=== PATIENT | male | born 1965 | race Caucasian/White ===

== ENCOUNTER 2025-07-06 12:53 | Outpatient (CLI) | payer BC, SELFPAY ==
--- NOTE | 2025-07-06 13:00 | XR_ITS ---
FINAL REPORT CLINICAL HISTORY: SOB..congestion FINDINGS: 2 views of the chest were obtained . The heart is normal in size. The mediastinum is within normal limits. There is scarring or atelectasis in the right middle lung. The lungs are otherwise clear. There is no pneumothorax. Osseous structures are unremarkable. IMPRESSION: No acute cardiopulmonary process. Reviewed, Interpreted and Dictated by Archie Beckford MD Transcribed by Kendy Chavez Authenticated and [facility]
== END 2025-07-06 23:59 | disposition home or self-care (01) ==
LOC: RAD 12:55
PROVIDERS: PCP Family Medicine; Visit Provider Internal Medicine Pulmonary Disease
DX: R06.02 Shortness of breath (principal)
CPT/HCPCS: 71046

== ENCOUNTER 2025-09-03 12:46 | Outpatient (CLI) | payer BC, SELFPAY ==
--- NOTE | 2025-09-03 13:00 | CA_ITS ---
APPROVED REPORT EXAM: Limited 2D, Doppler, and color-flow Echocardiogram with contrast Press Tool Maker: Viviana Albrecht RT(R) Ht: 5 ft 10 in Wt: 285lbs BSA: 2.43 BP: 124/76 mmHg Indications: Shortness of breath, hypertension Echo Enhancing Agent Indication: Endocardial border delineation Agent(s) / Amount(s) Used: Definity 2 cc 2D Dimensions LA Volume 25.10 mL LA Volume Index 10.33 mL/m2 (M/F) 16-34 EF AP4 59.70 % GL Strain -20.1 % M-Mode Dimensions RVDd 1.69 cm (0.9-2.6) LA Diam 3.53 cm (1.9-4.0) LVDd 4.99 cm (3.5-5.7) LVDs 3.30 cm (3.5-5.7) IVSd 0.80 cm (0.6-1.1) PWd 1.07 cm (0.6-1.1) EF (Teich) 62.50% FS 33.90% EDV (Teich) 117.70 mL ESV (Teich) 44.10 mL LV Diastology E Decel Time 417 (160-240 msec) E/A Ratio 1.11 Mitral Valve MV A Velocity 71.0 (40-130 cm/s) E/A Ratio 1.11 Left Ventricle The left ventricle is normal size. Left ventricular systolic function is normal. The left ventricular ejection fraction is within the normal range. There is normal left ventricular wall thickness. There is normal LV segmental wall motion. The left ventricular diastolic function is normal. No left ventricle thrombus noted on this study. LVEF is 55% Right Ventricle The right ventricle is normal size. The right ventricular systolic function is normal. Atria The left atrium size is normal. The right atrium size is normal. Color Doppler is indeterminate for evaluation of interatrial shunt. Aortic Valve The aortic valve opens well. There is no hemodynamically significant aortic valvular stenosis. No aortic regurgitation is present. Mitral Valve The mitral valve is normal in structure. No evidence of mitral valve stenosis. Trace mitral regurgitation is present. Tricuspid Valve The tricuspid valve leaflets are thin and pliable. Trace tricuspid regurgitation. There is insufficient TR jet to estimate RVSP. Pulmonic Valve The pulmonary valve is grossly normal in structure. Trace pulmonic valve regurgitation is present. Great Vessels The aortic root is normal in size. IVC is normal in size and collapses >50% with inspiration. Pericardium There is no pericardial effusion. Other Information Study Quality: Fair Conclusion Normal biventricular systolic function. No significant valvular stenosis or regurgitation. Electronically signed by : Yaz Hurley MD 09/05/2025 01:51:34
[2025-09-03] MEDS: DEFINITY US ECHO CONTRAST 2ML INJ 2 MG IV (13:56)
== END 2025-09-03 23:59 | disposition home or self-care (01) ==
LOC: RT 12:47
PROVIDERS: PCP Family Medicine; Visit Provider Internal Medicine
DX: R06.09 Other forms of dyspnea (principal); R06.02 Shortness of breath; I10 Essential (primary) hypertension
CPT/HCPCS: 93306; Q9957

== ENCOUNTER 2025-11-03 11:14 | Outpatient (CLI) | payer BC, SELFPAY ==
--- NOTE | 2025-11-03 | CA_ITS ---
APPROVED REPORT Exam: Pharmacologic Technologist: Tangela Vasquez Stress Nurse: Mary ELIZONDO, RN Ht: 5 ft 10 in Wt: 277 lbs BSA: 2.40 m2 HR: 83 bpm BP: 147/91 mmHg Indications: Dyspnea on exertion, anginal equivalent Stress Test Details Test: Lexiscan HR Resting HR: 83 bpm Max Heart Rate (APMHR): 162.131566 bpm Max HR Achieved: 102 bpm Target HR (85% APMHR): 137.311749 bpm % of APMHR: 62.96 Recovery HR: 92 bpm BP Resting BP: 147.0/91.0 mmHg Max BP: 158.0/88.0 mmHg Recovery BP: 149.0/89.0 mmHg ECG Stress ECG Conclusion Wheezing prior to start of test. Nebulizer given with u.d. Albuterol given prior to Lexiscan. Lungs clear to auscultation prior to start of test. Symptoms: None Arrhythmias/Ectopy: PAC ST-T Changes: Less than 0.[address] segment changes. Electronically signed by : Yaz Hurley MD 11/09/2025 13:06:39
--- NOTE | 2025-11-03 11:30 | NM_ITS ---
APPROVED REPORT Exam: Nuclear Stress Test Indication: SOB, HTN Patient Location: Outpatient Stress Tech: Tangela Vasquez PR Tech:TESFAYE DiazT, RT (R)(N) Ht: 5 ft 10 in Wt: 275 lbs HR: 80 bpm BP: 147/91 mmHg BSA: 2.39 m2 TID: 0.97 BMI: 39.4 History: SOB, HTN Procedure: Patient received 0.4 mg of intravenous Lexiscan, resting heart rate 80 bpm, resting blood pressure 147/91 mmHg, with Lexiscan maximum heart rate achieved was 102 bpm which is % of the maximum predicted heart rate and blood pressure was 158/88 mmHg. With Lexiscan, patient denied any complaint of chest pain. Cardiac Stress and Resting SPECT Images: Cardiac Stress and Resting SPECT images were obtained using technetium 99m Myoview 31.9 mCi stress and 10.49 mCi at rest. Resting and stress imaging in supine and prone positions demonstrate no evidence of fixed or reversible perfusion defects. Gated imaging demonstrates normal global LV systolic function. LVEF is calculated at 56%. Conclusion: No evidence of fixed or reversible perfusion defects. Gated imaging demonstrates normal global LV systolic function. LVEF is calculated at 56%. Electronically signed by : Yaz Hurley MD 11/09/2025 12:53:00
[2025-11-03 12:37] VITALS: BMI 39.7
[2025-11-03] MEDS: ALBUTEROL 0.083% 2.5 MG/3 ML NEB IH (12:40)
[2025-11-03] MEDS: SODIUM CHLORIDE 0.9% 10ML SYR (RAD ONLY) 10 ML IV ×2 (12:52)
[2025-11-03] MEDS: ISOTOPE MYOVIEW (PER STUDY) 1 DOSE IV (12:52)
[2025-11-03 13:01] VITALS: BP 147/91; PULSE 83; RESP 14
== END 2025-11-03 23:59 | disposition home or self-care (01) ==
LOC: RAD 11:15
PROVIDERS: PCP Family Medicine; Visit Provider Internal Medicine
DX: I49.1 Atrial premature depolarization (principal); I10 Essential (primary) hypertension; I20.89 Other forms of angina pectoris
CPT/HCPCS: 78452; 93017; 93018; A9502; J2785

== ENCOUNTER 2025-11-09 12:49 | Outpatient (CLI) | payer BC, SELFPAY ==
[2025-11-09 14:40] VITALS: PULSE 89; PULSE 93
[2025-11-09] MEDS: ALBUTEROL 0.083% 2.5 MG/3 ML NEB IH (14:40)
[2025-11-09 16:25] LABS: Hematocrit 51.4 % (42.0-52.0); Hemoglobin 17.2 g/dL (14.1-18.0); Immature Granulocytes % 0.6 %; Mean Corpuscular HGB Conc 33.5 g/dL (31.8-35.4); Mean Corpuscular Hemoglobin 31.7 pg (27.0-31.2); Mean Corpuscular Volume 94.8 fl (80-94); Nucleated Red Blood Cells % 0 %; Platelet Count 302 K/mm3 (142-424); Red Blood Count 5.42 M/mm3 (4.60-6.20); Red Cell Distribution Width-SD 47.3 fL; White Blood Count 13.5 K/mm3 (4.8-10.8)
[2025-11-17 06:48] LABS: I006-IgE Cockroach, German <0.10 kU/L (Class 0); T006-IgE Cedar, Mountain <0.10 kU/L (Class 0); T007-IgE Oak, White <0.10 kU/L (Class 0); T008-IgE Elm, American <0.10 kU/L (Class 0); T015-IgE Ash, White <0.10 kU/L (Class 0); T022-IgE Pecan, Hickory <0.10 kU/L (Class 0); W001-IgE Ragweed, Short <0.10 kU/L (Class 0); W011-IgE Thistle, Russian <0.10 kU/L (Class 0); W014-IgE Pigweed, Common <0.10 kU/L (Class 0)
== END 2025-11-09 23:59 | disposition home or self-care (01) ==
LOC: RT 12:50
PROVIDERS: PCP Family Medicine; Visit Provider Internal Medicine Pulmonary Disease
DX: J44.89 Other specified chronic obstructive pulmonary disease (principal); J45.30 Mild persistent asthma, uncomplicated; R94.2 Abnormal results of pulmonary function studies
CPT/HCPCS: 36415; 82785; 85025; 86003; 94060; 94618; 94640; 94726; 94729